=== PATIENT | female | born 2000 | race Two or more races ===

== ENCOUNTER 2019-01-21 12:35 | Emergency (ER) | payer OTHER ==
[~2019-01-21] VITALS: Ht 157.5 cm; Wt 44.5 kg
[2019-01-21] MEDS ORDERED: SINGULAIR 5MG5 MG (13:35)
== END 2019-01-21 18:02 | disposition home or self-care (01) ==
LOC: ER 12:35
DX: K29.70 Gastritis, unspecified, without bleeding (principal)